=== PATIENT | female | born 1980 | race Caucasian/White ===

== ENCOUNTER 2017-09-25 11:22 | Emergency (ER) | payer MEDICAID ==
[~2017-09-25] VITALS: Ht 157.5 cm; Wt 79.4 kg
[2017-09-25 11:31] VITALS: Ht 157.5 cm; Wt 79.4 kg
[2017-09-25 12:27] VITALS: BP 142/91
== END 2017-09-25 12:15 | disposition home or self-care (01) ==
LOC: ED 11:22
DX: J02.0 Streptococcal pharyngitis (principal)